=== PATIENT | male | born 2000 | race Caucasian/White ===

== ENCOUNTER 2024-10-10 09:07 | Emergency (ER) | payer BC ==
[~2024-10-10] VITALS: Ht 188 cm; Wt 108.9 kg
[2024-10-10 09:37] VITALS: PULSE 78; RESP 18; TEMP 98.1; O2SAT 100
[2024-10-10] MEDS: DEXAMETHASONE 4 MG TAB PO STA (10:28)
== END 2024-10-10 10:30 | disposition home or self-care (01) ==
LOC: ER 09:14
DX: J02.9 Acute pharyngitis, unspecified (principal)
CPT/HCPCS: 83518; 87070; 99283; J8540